=== PATIENT | male | born 1955 | race Caucasian/White ===

== ENCOUNTER 2016-12-26 14:34 | Emergency (ER) | payer OTHER ==
[~2016-12-26] VITALS: Ht 180.3 cm; Wt 72.7 kg
[2016-12-26 15:04] VITALS: Ht 180.3 cm; Wt 72.7 kg
[2016-12-26] MEDS ORDERED: SOD CHLORIDE 0.9% 1,000 ML IV STA (15:56)
[2016-12-26 16:25] LABS: ADD SCAN DIFF NO
[2016-12-26 16:33] LABS: BASOPHIL # 0.1 10^3/ul (0.0-0.1); BASOPHILS % 0.6 % (0.0-2.0); EOSINOPHILS # 0.2 10^3/ul (0.0-0.5); EOSINOPHILS % 1.8 % (0.0-7.0); HEMATOCRIT 39.1 % (42.0-52.0); LYMPHOCYTES # 1.8 10^3/ul (0.8-2.9); MEAN CORPUSCULAR HEMOGLOBIN 34.9 pg (29.0-33.0); MEAN CORPUSCULAR HGB CONC 33.2 g/dl (32.0-37.0); MEAN CORPUSCULAR VOLUME 104.8 fl (82.0-101.0); MEAN PLATELET VOLUME 12.2 fl (7.4-10.4); MONOCYTE # 0.6 10^3/ul (0.3-0.9); MONOCYTES % 6.6 % (0.0-11.0); NEUTROPHILS % 71.6 % (39.0-77.0); PLATELET COUNT 142 10^3/UL (140-415); RED BLOOD COUNT 3.73 10^6/ul (4.70-6.10); RED CELL DISTRIBUTION WIDTH 13.1 % (11.5-14.5); WHITE BLOOD COUNT 9.7 10^3/ul (4.8-10.8)
[2016-12-26 16:41] LABS: CHLORIDE 100 mmol/L (97-110); POTASSIUM 3.8 mmol/L (3.5-5.1); SODIUM 139 mmol/L (135-144)
[2016-12-26 16:43] LABS: CREATININE 0.55 mg/dl (0.61-1.24)
[2016-12-26 16:44] LABS: ANION GAP 15 (8-16); BLOOD UREA NITROGEN 9 mg/dl (7-20); CALCIUM 8.6 mg/dl (8.4-10.2); CARBON DIOXIDE 28 mmol/L (21-31); GLUCOSE 148 mg/dl (70-220)
[2016-12-26 16:56] LABS: TROPONIN-I < 0.012 ng/ml (0.00-0.12)
--- NOTE | 2016-12-26 17:09 | RADRPT ---
PROCEDURE: CT brain without contrast CLINICAL INDICATION: Syncope TECHNIQUE: CT of the brain without contrast performed on a multidetector CT scanner, with multiplan ar reformats. One or more of the following dose reduction techniques were used: Automated exposure control, adjustment in mA and / or kV according to patient size, use of iterative reconstructive deidre hnique. CTDIvol = 39 mGy; DLP = 634 mGy-cm. COMPARISON: None available FINDINGS: No acute intracranial hemorrhage is identified. No extra-axial fluid collection is seen. There is no mass effect. No midline shift is identified. Ventricles and sulci are mild to moderately enlarged compatible with volume loss. There are at the areas of hypodensity in the periventricular - deep white matter which are nonspecif ic but suggestive of chronic small vessel ischemic changes. Decker-white differentiation is preserved . Atherosclerotic calcifications of the intracranial internal carotid arteries are noted. Osseous structures are unremarkable. Mastoid air cells and imaged paranasal sinuses grossly clear. IMPRESSION: 1. No evidence of acute intracranial pathology. 2. Mild to moderate volume loss, with mild chronic small vessel ischemic changes. RPTAT: VV .Jason Mireles MD, MD Date Time Electronically viewed and signed by .Jason Mireles MD, MD on 12/26/2016 17:09 .O/
--- NOTE | 2016-12-26 19:35 | ERD ---
ER Documentation Chief Complaint Date/Time DATE: 12/26/16 TIME: 19:32 Chief Complaint BROUGHT IN VIA EMS DUE TO WEAKNESS AND RECENT DISCHARGE FROM HOSPITAL HPI This is 61-year-old male who is homeless who said he is here for generalized weakness. He said he was on the street and suddenly felt acute was going to pass out. He said he was not syncopal and had no fall. He says he feels generalized weakness with no focal neurological complaints. Denies headache chest pain shortness of breath nausea vomiting diarrhea. The patient says he was admitted to the hospital at an outside facility about 7-10 days ago for nonstop diarrhea however this is resolved. Says he has no cough no fever no dysuria no abdominal pain no speech changes no focal neurological complaints ROS All systems reviewed and are negative except as per history of present illness. PMhx/Soc Medical and Surgical Hx: pt denies Medical Hx, pt denies Surgical Hx History of Surgery: No Anesthesia Reaction: No Hx Neurological Disorder: No Hx Respiratory Disorders: No Hx Cardiac Disorders: No Hx Psychiatric Problems: No Hx Miscellaneous Medical Probl: Yes (pancreatitis ) Hx Alcohol Use: No (quit 8 days ago) Hx Substance Use: No Hx Tobacco Use: Yes Smoking Status: Current some day smoker FmHx Family History: No coronary disease Physical Exam Vitals Vital Signs Date Time Temp Pulse Resp B/P Pulse Ox O2 Delivery O2 Flow Rate FiO2 12/26/16 18:39 85 18 138/90 100 Room Air 12/26/16 17:30 85 17 140/88 100 Room Air 12/26/16 15:46 85 17 128/94 99 Room Air 12/26/16 15:04 98.0 80 18 159/99 98 Physical Exam Const: Well-developed, well-nourished Head: Atraumatic, normocephalic Eyes: Normal Conjunctiva, PERRLA, EOMI, normal sclera, no nystagmus ENT: Normal External Ears, Nose and Mouth, moist mucus membranes. Neck: Full range of motion. No meningismus, no lymphadenopathy. Resp: Clear to auscultation bilaterally, no wheezing, rhonchi, rales Cardio: Regular rate and rhythm, no murmurs, S1 S2 present Abd: Soft, non tender x 4, non distended. Normal bowel sounds, no guarding or rebound, no pulsitile abdominal masses or bruits Skin: No petechiae or rashes, no ecchymosis , no maculopapular rash Back: No midline or flank tenderness Ext: No cyanosis, or edema, FROM x 4, normal inspection, neurovascularly intact x 4 Neur: Awake and alert, STR 5/5 x 4, sensation intact x 4, no focal findings, cerebellum intact Psych: Normal Mood and Affect Result Diagram: 12/26/16 1555 12/26/16 1555 Results 24 hrs Laboratory Tests Test 12/26/16 15:55 Anion Gap 15 Basophils # 0.110^3/ul Basophils % 0.6% Blood Urea Nitrogen 9mg/dl Calcium Level 8.6mg/dl Carbon Dioxide Level 28mmol/L Chloride Level 100mmol/L Creatinine 0.55mg/dl Eosinophils # 0.210^3/ul Eosinophils % 1.8% Glucose Level 148mg/dl Hematocrit 39.1% Hemoglobin 13.0g/dl Lymphocytes # 1.810^3/ul Lymphocytes % 19.0% Mean Corpuscular Hemoglobin 34.9pg Mean Corpuscular Hemoglobin Concent 33.2g/dl Mean Corpuscular Volume 104.8fl Mean Platelet Volume 12.2fl Monocytes # 0.610^3/ul Monocytes % 6.6% Neutrophils # 7.010^3/ul Neutrophils % 71.6% Nucleated Red Blood Cells # 0.010^3/ul Nucleated Red Blood Cells % 0.0/100WBC Platelet Count 74907^3/UL Potassium Level 3.8mmol/L Red Blood Count 3.7310^6/ul Red Cell Distribution Width 13.1% Sodium Level 139mmol/L Troponin I < 0.012ng/ml White Blood Count 9.710^3/ul Current Medications Medications (Trade) Dose Ordered Sig/Cherry Route PRN Reason Start Time Stop Time Status Last Admin Dose Admin Sodium Chloride (NS) 1,000 ml @ 1,000 mls/hr Q1H STAT IV 12/26/16 15:56 12/26/16 16:55 DC 12/26/16 16:11 Procedures/MDM PROCEDURE: CT brain without contrast CLINICAL INDICATION: Syncope TECHNIQUE: CT of the brain without contrast performed on a multidetector CT scanner, with multiplanar reformats. One or more of the following dose reduction techniques were used: Automated exposure control, adjustment in mA and / or kV according to patient size, use of iterative reconstructive technique. CTDIvol = 39 mGy; DLP = 634 mGy-cm. COMPARISON: None available FINDINGS: No acute intracranial hemorrhage is identified. No extra-axial fluid collection is seen. There is no mass effect. No midline shift is identified. Ventricles and sulci are mild to moderately enlarged compatible with volume loss. There are at the areas of hypodensity in the periventricular - deep white matter which are nonspecific but suggestive of chronic small vessel ischemic changes. Decker-white differentiation is preserved. Atherosclerotic calcifications of the intracranial internal carotid arteries are noted. Osseous structures are unremarkable. Mastoid air cells and imaged paranasal sinuses grossly clear. IMPRESSION: 1. No evidence of acute intracranial pathology. 2. Mild to moderate volume loss, with mild chronic small vessel ischemic changes. RPTAT: VV .Jason Mireles MD, MD Date Time Electronically viewed and signed by .Jason Mireles MD, MD on 12/26/2016 17:09 .O/ CC: PEDRO PARK DO Patient received some IV fluids and had 2 cm which snacks and some sleep and now is feeling better. I think is acute on his chest x-ray Is near syncopal/generalized weakness may be due to just fatigue/volume depletion/low sugar. There is no syncopal episode. Discharged in stable condition EKG: Rate/Rhythm: Normal Sinus Rhythm,NL intervals QRS, ST, QT: NORMAL OR, QRS, QT] Impression: NORMAL EKG Departure Diagnosis: Primary Impression: Near syncope Additional Impression: Weakness Condition: Stable Patient Instructions: Generalized Weakness, Near Syncope, Unknown PEDRO PARK DO Dec 26, 2016 19:35
[2016-12-26 19:41] VITALS: BP 137/91; PULSE 89; RESP 17
== END 2016-12-26 19:41 | disposition home or self-care (01) ==
LOC: E/R 14:34
DX: R55 Syncope and collapse (principal); F17.210 Nicotine dependence, cigarettes, uncomplicated
CPT/HCPCS: 36415; 70450; 80048; 84484; 85025; 93005; 96360; J7030; Z7502